=== PATIENT | male | born 1935 | race Caucasian/White ===

== ENCOUNTER → 2017-09-11 | Outpatient (CLI) | payer MEDICARE, OTHER ==
[~2017-09-11] MED LIST: ACULAR0.4 ML OPH; ASPIRIN81 M1 PO; ATENOLOL25 MG PO; CALCIUM 500 + D1 TA1 PO; COSOPT INTRAOC; ELITE MAGNESIUM1 TAB PO; FISH OIL 10001000 MG PO; GARLIC OIL NATUR1 MG PO; LUMIGAN 2.5 ML2.5 ML OPH; MULTIPLE VITAMI1 TAB PO; NIACIN500 M1 PO; OCUFLOX 0.3% 5 M5 ML OPH; PRED FORTE 5 ML5 ML OPH
[2017-09-11 08:48] LABS: CHLORIDE 107 mmol/L (98-107); SODIUM 140 mmol/L (136-145)
[2017-09-11 08:51] LABS: BASO # 0.1 10*3/uL (0.0-0.1); EOS % 10.4 % (1.0-4.0); HEMATOCRIT 43.6 % (42.0-52.0); HEMOGLOBIN 14.2 g/dl (14.0-18.0); LYMPH # 1.5 10*3/uL (1.3-4.4); LYMPH % 15.8 % (27.0-41.0); MEAN CORPUSCULAR HGB 30.9 pg (27.0-31.0); MEAN CORPUSCULAR HGB CONC 32.6 g/dl (33.0-37.0); MEAN PLATELET VOLUME 9.9 fl (9.6-12.3); MONO # 0.7 10*3/uL (0.1-1.0); MONO % 7.4 % (3.0-9.0); NEUT # 6.2 10*3/uL (2.3-7.9); NEUT % 65.2 % (47.0-73.0); PLATELET COUNT AUTOMATED 279 10*3/uL (130-400); RED BLOOD COUNT 4.59 10*6/uL (4.50-5.90); RED CELL DISTRI WIDTH 14.6 % (0-14.5); WHITE BLOOD COUNT 9.6 10*3/uL (4.8-10.8)
[2017-09-11 09:03] LABS: ALKALINE PHOSPHATASE 55 U/L (45-117); BUN 15 mg/dl (7-24); CHOLESTEROL 167 mg/dL (<200); CREATININE 1.24 mg/dL (0.70-1.30); HDL CHOLESTEROL 44 mg/dl (40-60); LDL CHOLESTEROL 104 mg/dL (9-159); SGOT/AST 19 IU/L (3-35); SGPT/ALT 24 U/L (12-78); TOTAL PROTEIN 7.2 gm/dL (6.4-8.2); TRIGLYCERIDES 93 mg/dl (<150); VLDL CHOLESTEROL 19 mg/dL (6-40)
== END | disposition home or self-care (01) ==
LOC: LAB 07:38 → RAD 08:00
PROVIDERS: Internal Medicine
DX: Z12.5 Encounter for screening for malignant neoplasm of prostate (principal); I10 Essential (primary) hypertension; E78.00 Pure hypercholesterolemia, unspecified; N40.1 Benign prostatic hyperplasia with lower urinary tract symptoms; I49.5 Sick sinus syndrome; R13.14 Dysphagia, pharyngoesophageal phase

== ENCOUNTER 2017-10-04 12:54 | Inpatient (IN) | payer MEDICARE, OTHER ==
[~2017-10-04] VITALS: Ht 170.1 cm; Wt 72.7 kg
--- NOTE | ~2017-10-04 | CON ---
[place], [place] REPORT OF CONSULTATION NAME: TARA LAZAR [facility] #: [id number] UNIT #: [id number] ROOM: 507 DOCTOR: DAISY EVANS MD BIRTHDATE: [birth year] DOS: 10/04/2017 REASON FOR CONSULTATION: Dyspnea and edema. HISTORY OF PRESENT ILLNESS: The patient is an 82-year-old man who had rheumatic fever as a child. He was followed by the [facility] until they left the local area. He has a pacemaker in place because of a conduction system disorder. The generator was replaced and one of the leads was replaced in November 2016. 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 He states that he was in his normal state of health until the last several weeks. He has had increased dyspnea, increased pedal edema and increased fatigue lately. He was seen by his primary physician who diagnosed a urinary tract infection. This was treated, but the patient did not get any better. He states that he saw his machine shop inspector, Dr. Cox, at the [facility] a few days ago and was told that his pacemaker was working fine, but his heart had become irregular. The patient believes that he was told he was having periods of atrial fibrillation. Nonetheless, his medications were not changed. He continued to feel breathless and fatigued and therefore came to the emergency room today. He does have evidence for a urinary tract infection. He was found to have a mildly elevated troponin. The patient was admitted for IV antibiotics. When I approached the patient, he stated that he has been more dyspneic and fatigued lately, but he denies palpitations. As noted, his machine shop inspector reportedly told him that he was having atrial fibrillation and they did discuss anticoagulation, but his medications were not changed. In addition to his other symptoms, the patient has noticed pleuritic chest pains for the last several days although these seem to have improved. PAST MEDICAL HISTORY: Includes the followin. Rheumatic heart disease. 2. Conduction system disorder with syncope. The patient was treated with a dual chamber pacemaker in 2013. Reportedly, he developed a lead problem and he underwent a lead replacement along with a generator replacement utilizing a [employer] device 12/05/2016. 3. Essential hypertension. 4. Status post cholecystectomy and appendectomy. 5. Echocardiogram 04/30/2012 demonstrated mild aortic stenosis and moderate mitral stenosis. 6. Echocardiogram November 2015 reportedly showed no changes. 7. Hospitalization 10/04/2017 with urinary tract infection and worsening dyspnea with signs of heart failure. 8. Reported pacemaker interrogation in mid September 2017, at which time the patient was told that he had some irregularities to his heartbeat. This has not yet been confirmed. MEDICATIONS: Prior to admission, Cosopt eye drops 4 drops in the eyes daily, Lumigan eyedrops 2 drops in the eyes daily, aspirin 81 mg per day, atenolol 25 [place], [place] REPORT OF CONSULTATION NAME: TARA LAZAR UNIT #: [id number] ROOM: 507 DOCTOR: DAISY EVANS MD BIRTHDATE: [birth year] mg per day, calcium with vitamin D daily, fish oil daily, garlic daily, magnesium 1 tablet daily, multivitamin daily, potassium 99 mg at bedtime and red yeast rice extract daily. ALLERGIES: The patient lists allergies to PENICILLINS. REVIEW OF SYSTEMS: The patient denies diplopia, loss of vision. Denies lightheadedness or syncope. He denies focal weakness. He states that he did have a mini stroke several years ago, but not recently. He denies orthopnea or PND. He denies fevers or chills. He has felt weak lately. He has noticed increased peripheral edema. He has had some pleuritic chest pains. He denies nausea or vomiting. He denies hemoptysis or hematemesis. He denies change in bowel or bladder habits and denies blood in his stools or urine. He has had some dysuria, however. He denies any skin rashes. He denies polydipsia or polyuria. Remainder of the review of systems is negative except as noted above. SOCIAL HISTORY: The patient is and lives with his . He is nonsmoker and nondrinker. PHYSICAL EXAMINATION: GENERAL: The patient is an elderly white male who does look fatigued. VITAL SIGNS: Pulse is 70 and regular, blood pressure is 132/80. He is afebrile. Pulse ox is 98%. HEENT: Normocephalic and atraumatic. Extraocular muscles are intact. Sclerae are clear. Pupils are equal, round and react to light. The oral mucosa is moist. Tongue is midline. NECK: Supple. He does have jugular distention with hepatojugular reflux when sitting in a 45 degree angle. Carotids are full without bruits. There are no neck or supraclavicular masses. LUNGS: Respirations are unlabored. He has decreased breath sounds at the bases, but no wheezes or rales. He has no presacral edema. CARDIOVASCULAR: His heart has a regular rhythm. He has a soft systolic ejection murmur along the left sternal border. I did not hear any diastolic murmurs. He does not have any gallops. ABDOMEN: Soft and normally active without masses, organomegaly or bruits. EXTREMITIES: Showed 2+ edema to the mid calf. LABORATORY DATA: Electrocardiogram shows a significant baseline artifact. The ventricles are 100% paced; however, I could not determine the atrial mechanism. Troponins are mildly elevated at 0.057 and 0.061, hemoglobin is 13.9, white count 18,900, platelet count 497,000. Sodium is 136, potassium 3.8, BUN 19, creatinine 1.57. Lactic acid is normal at 1.6. IMPRESSIONS: 1. Signs and symptoms of congestive heart failure. The etiology of this is not established; however, the patient is known to have valvular heart disease and reportedly was told by his machine shop inspector that he has developed a heart irregularity. I think it is very likely that he has developed atrial fibrillation based on his symptoms, and absence of an S4 gallop on exam. His [place], [place] REPORT OF CONSULTATION NAME: TARA LAZAR UNIT #: [id number] ROOM: 507 DOCTOR: DAISY EVANS MD BIRTHDATE: [birth year] most recent pacer interrogation would be very helpful in this regard. 2. Probable new onset atrial fibrillation. 3. Pleuritic chest pain, etiology to be determined. 4. Rheumatic heart disease with aortic stenosis and mitral stenosis. 5. Essential hypertension. 6. Urinary tract infection. PLAN: The patient's primary physicians will be taking care of his urinary infection. For now, I think that he should be anticoagulated with heparin. We should make an effort to get the pacer interrogation from his machine shop inspector, Dr. Cox, at the [facility] this coming week. If this is not possible then his pacer should be interrogated by the [employer] player services representative to show us if he has had episodes of atrial fibrillation. I will be getting a lower extremity venous ultrasound. If he does show DVT, then we will switch him from the ACS heparin protocol to the pulmonary emboli protocol. I will diurese the patient gently to try to make him more euvolemic. This coming week, we will do an echocardiogram to reassess valve function. I thank the hospitalist physicians for asking our advice regarding the patient's care. DAISY EVANS MD CM:CONSTR:REPORT OF CONSULTATION 1745 10/04/17 1814 interface
--- NOTE | ~2017-10-04 | PR ---
[place], [place] PROGRESS NOTE NAME: TARA LAZAR UNIT #: [id number] ROOM: 507 DOCTOR: ROSEMARY ROTHMAN MD BIRTHDATE: [birth year] DOS: 10/06/2017 REASON FOR VISIT: Paroxysmal atrial fibrillation, valvular heart disease. SUBJECTIVE: The patient is feeling better. Denies any chest pain, shortness of breath. No fever and chills. No nausea, vomiting, or diarrhea. No PND, no orthopnea, no palpitations. REVIEW OF SYSTEMS: Review of the 10 systems negative except as mentioned above. RHYTHM STRIPS: The patient is in sinus rhythm with ventricular pacing. PHYSICAL EXAMINATION: VITAL SIGNS: Blood pressure 134/77, pulse 70, respiration was 18. GENERAL: The patient is alert, oriented, no acute distress. HEENT: Pupils round, equal. No jaundice. Tongue was moist and pharynx clear. NECK: Supple, no distended neck veins, no carotid bruit. CHEST: Symmetrical, nontender. LUNGS: Few scattered rhonchi, but good air entry bilaterally. HEART: Regular rhythm, no S3, grade 1-2/6 systolic murmur. No palpable thrills. ABDOMEN: Benign, nontender. Bowel sounds normal. EXTREMITIES: Showed no edema. Distal pulses palpable. SKIN: Warm and dry. No cyanosis, no clubbing. RECTAL: Deferred. IMPRESSION: 1. Paroxysmal atrial fibrillation. The patient was on heparin and Coumadin. 2. History of rheumatic heart disease with mild mitral stenosis and mild aortic stenosis, 2D echo is pending to be done Saturday. 3. Status post pacemaker insertion, normal function. 4. Chronic kidney disease. 5. Urinary tract infection. RECOMMENDATIONS: 1. Continue current medication. 2. Continue heparin until his INR 2.0 or greater. 3. 2D echo to be done Saturday. [place], [place] PROGRESS NOTE NAME: TARA LAZAR UNIT #: [id number] ROOM: 507 DOCTOR: ROSEMARY ROTHMAN MD BIRTHDATE: [birth year] ROSEMARY ROTHMAN MD CM:PNTRANS [id number] ROSEMARY ROTHMAN MD 10/07/17 0006 interface
--- NOTE | ~2017-10-04 | PR ---
[place], [place] PROGRESS NOTE NAME: TARA LAZAR UNIT #: [id number] ROOM: 507 DOCTOR: ROSEMARY ROTHMAN MD BIRTHDATE: [birth year] DOS: 10/05/2017 REASON FOR VISIT: Atrial fibrillation and valvular heart disease. SUBJECTIVE: The patient is feeling better. Denies any chest pain or shortness of breath. No palpitation, no dizziness, no nausea, vomiting. REVIEW OF SYSTEMS: Review of the 8 systems negative except as mentioned above. RHYTHM STRIPS: The patient was ventricular pacing. PHYSICAL EXAMINATION: VITAL SIGNS: Blood pressure 138/90, pulse 70, respiration is 20, weight 70.8 kilos. GENERAL: Alert, comfortable, in no acute distress. HEENT: Pupils are equal, no jaundice. NECK: Supple, no distended neck veins, no carotid bruit. CHEST: Symmetrical, nontender. LUNGS: Clear to auscultation bilaterally. HEART: Regular rhythm, grade 2/6 systolic murmur. No S3. ABDOMEN: Benign, nontender. Bowel sounds normal. EXTREMITIES: Showed 1+ edema. Distal pulses are fair. SKIN: Warm and dry. No cyanosis, no clubbing. NEUROLOGIC: The patient is alert, oriented. No focal neurologic deficit. MEDICATIONS AND LABS: Reviewed. IMPRESSION: 1. Paroxysmal atrial fibrillation, new onset, high CHADS2-VASc score. 2. Rheumatic heart disease, mitral stenosis and aortic stenosis. 3. Status post pacemaker. 4. Atypical chest pain. 5. Hypertension. 6. Urinary tract infection. RECOMMENDATIONS: 1. Long discussion with the patient and his , who is at bedside. 2. Risks, benefits of the anticoagulation discussed and he is agreeable to take Coumadin, start 5 mg once daily. 3. Continue heparin until his INR is therapeutic. 4. A 2D echo was ordered. This will be done Saturday. 5. Rest of the management is per Dr. Davila. [place], [place] PROGRESS NOTE NAME: TARA LAZAR UNIT #: [id number] ROOM: 507 DOCTOR: ROSEMARY ROTHMAN MD BIRTHDATE: [birth year] ROSEMARY ROTHMAN MD CM:PNWILLY [phone] ROSEMARY ROTHMAN MD 10/05/179 interface
[~2017-10-04 12:54] MED LIST changes: +COSOPT 2%-0.5%10 ML OPH; -COSOPT INTRAOC; -LUMIGAN 2.5 ML2.5 ML OPH; +LUMIGAN50 DRP OPH
[2017-10-04 13:07] VITALS: BP 154/79
[2017-10-04 13:54] LABS: BASO # 0.1 10*3/uL (0.0-0.1); BASO % 0.4 % (0.0-1.0); EOS # 0.1 10*3/uL (0.0-0.4); EOS % 0.4 % (1.0-4.0); HEMATOCRIT 42.3 % (42.0-52.0); HEMOGLOBIN 13.9 g/dl (14.0-18.0); LYMPH # 1.1 10*3/uL (1.3-4.4); MEAN CELL VOLUME 93.4 fl (80.0-94.0); MEAN CORPUSCULAR HGB 30.7 pg (27.0-31.0); MEAN CORPUSCULAR HGB CONC 32.9 g/dl (33.0-37.0); MEAN PLATELET VOLUME 9.2 fl (9.6-12.3); MONO # 1.2 10*3/uL (0.1-1.0); MONO % 6.1 % (3.0-9.0); NEUT # 16.3 10*3/uL (2.3-7.9); NEUT % 86.5 % (47.0-73.0); PLATELET COUNT AUTOMATED 497 10*3/uL (130-400); RED BLOOD COUNT 4.53 10*6/uL (4.50-5.90); RED CELL DISTRI WIDTH 14.5 % (0-14.5); WHITE BLOOD COUNT 18.9 10*3/uL (4.8-10.8)
[2017-10-04 13:58] LABS: BILIRUBIN NEGATIVE (NEGATIVE); BLOOD 2+ (NEGATIVE); CLARITY CLOUDY (CLEAR); COLOR YELLOW (YELLOW); GLUCOSE NEGATIVE (NEGATIVE); KETONE NEGATIVE (NEGATIVE); LEUKO ESTERASE 3+ (NEGATIVE); NITRITE NEGATIVE (NEGATIVE); SPECIFIC GRAVITY <= 1.005 (1.005-1.030); UROBILINOGEN 0.2 E.U./dl (0.2-1.0)
[2017-10-04 14:02] VITALS: BP 118/59
[2017-10-04 14:06] LABS: BACTERIA 4+; RBC 31-40 rbc/hpf (0-2); WBC TNTC wbc/hpf (0-5)
[2017-10-04] MEDS ORDERED: POTASSIUM99 M5 PO (14:06)
[2017-10-04] MEDS ORDERED: FISH OIL 1,2001 EACH PO (14:06)
[2017-10-04] MEDS ORDERED: RED YEAST RICE30 GM PO (14:07)
[2017-10-04 14:15] LABS: ALBUMIN 3.2 gm/dl (3.1-4.5); CREATININE 1.57 mg/dL (0.70-1.30); POTASSIUM 3.8 mmol/L (3.5-5.1); TOTAL PROTEIN 7.4 gm/dL (6.4-8.2)
[2017-10-04 14:25] LABS: TROPONIN I 0.057 ng/ml (<0.045)
[2017-10-04 15:06] VITALS: BP 153/73
[2017-10-04 16:00] VITALS: BP 132/80
[2017-10-04 17:43] LABS: ACT PARTIAL THROMBO TIME 26.3 SECONDS (20.8-31.5); INTERNATIONAL NORM RATIO 1.2 (2.0-3.5)
[2017-10-04 20:00] VITALS: BP 133/75
[2017-10-05 00:10] VITALS: BP 130/69
[2017-10-05 02:47] LABS: BASO # 0.1 10*3/uL (0.0-0.1); BASO % 0.5 % (0.0-1.0); EOS # 0.1 10*3/uL (0.0-0.4); EOS % 0.4 % (1.0-4.0); HEMATOCRIT 38.5 % (42.0-52.0); HEMOGLOBIN 12.3 g/dl (14.0-18.0); LYMPH # 1.1 10*3/uL (1.3-4.4); LYMPH % 5.8 % (27.0-41.0); MEAN CELL VOLUME 94.1 fl (80.0-94.0); MEAN CORPUSCULAR HGB 30.1 pg (27.0-31.0); MEAN CORPUSCULAR HGB CONC 31.9 g/dl (33.0-37.0); MEAN PLATELET VOLUME 9.2 fl (9.6-12.3); MONO % 5.7 % (3.0-9.0); NEUT # 15.8 10*3/uL (2.3-7.9); PLATELET COUNT AUTOMATED 402 10*3/uL (130-400); RED BLOOD COUNT 4.09 10*6/uL (4.50-5.90); RED CELL DISTRI WIDTH 14.5 % (0-14.5); WHITE BLOOD COUNT 18.1 10*3/uL (4.8-10.8)
[2017-10-05 03:00] LABS: CREATININE 1.42 mg/dL (0.70-1.30); POTASSIUM 4.1 mmol/L (3.5-5.1)
[2017-10-05 03:11] LABS: THYROID STIM HORMONE (HS) 0.553 uIU/ml (0.358-4.75)
[2017-10-05 06:52] LABS: VITAMIN D, 25-HYDROXY 54.9 ng/mL (30-100)
[2017-10-05 08:00] VITALS: BP 143/77
[2017-10-05 12:00] VITALS: BP 138/90
[2017-10-05 16:00] VITALS: BP 135/45
[2017-10-05 20:00] VITALS: BP 133/71
[2017-10-06] VITALS: BP 149/86
[2017-10-06 06:11] LABS: BASO # 0.1 10*3/uL (0.0-0.1); BASO % 0.6 % (0.0-1.0); EOS # 0.2 10*3/uL (0.0-0.4); HEMATOCRIT 41.2 % (42.0-52.0); HEMOGLOBIN 13.1 g/dl (14.0-18.0); LYMPH # 1.3 10*3/uL (1.3-4.4); LYMPH % 8.1 % (27.0-41.0); MEAN CELL VOLUME 95.2 fl (80.0-94.0); MEAN CORPUSCULAR HGB 30.3 pg (27.0-31.0); MEAN CORPUSCULAR HGB CONC 31.8 g/dl (33.0-37.0); MEAN PLATELET VOLUME 9.5 fl (9.6-12.3); MONO # 0.9 10*3/uL (0.1-1.0); MONO % 5.9 % (3.0-9.0); NEUT # 12.9 10*3/uL (2.3-7.9); NEUT % 83.6 % (47.0-73.0); PLATELET COUNT AUTOMATED 439 10*3/uL (130-400); RED BLOOD COUNT 4.33 10*6/uL (4.50-5.90); RED CELL DISTRI WIDTH 14.5 % (0-14.5); WHITE BLOOD COUNT 15.4 10*3/uL (4.8-10.8)
[2017-10-06 06:44] LABS: CREATININE 1.41 mg/dL (0.70-1.30); PHOSPHOROUS 2.8 mg/dL (2.5-4.9); POTASSIUM 4.1 mmol/L (3.5-5.1)
[2017-10-06 08:00] VITALS: BP 109/90
[2017-10-06 12:00] VITALS: BP 134/71
[2017-10-06 16:00] VITALS: BP 141/78
[2017-10-06 20:00] VITALS: BP 126/68
[2017-10-07] VITALS: BP 127/80
[2017-10-07 06:10] LABS: BASO # 0.1 10*3/uL (0.0-0.1); EOS # 0.3 10*3/uL (0.0-0.4); EOS % 2.2 % (1.0-4.0); HEMATOCRIT 41.1 % (42.0-52.0); HEMOGLOBIN 13.1 g/dl (14.0-18.0); LYMPH # 1.9 10*3/uL (1.3-4.4); MEAN CELL VOLUME 95.1 fl (80.0-94.0); MEAN CORPUSCULAR HGB 30.3 pg (27.0-31.0); MEAN CORPUSCULAR HGB CONC 31.9 g/dl (33.0-37.0); MONO # 0.8 10*3/uL (0.1-1.0); MONO % 5.6 % (3.0-9.0); NEUT # 10.4 10*3/uL (2.3-7.9); NEUT % 76.8 % (47.0-73.0); PLATELET COUNT AUTOMATED 460 10*3/uL (130-400); RED BLOOD COUNT 4.32 10*6/uL (4.50-5.90); RED CELL DISTRI WIDTH 14.6 % (0-14.5); WHITE BLOOD COUNT 13.6 10*3/uL (4.8-10.8)
[2017-10-07 06:22] LABS: INTERNATIONAL NORM RATIO 1.2 (2.0-3.5)
[2017-10-07 06:39] LABS: CREATININE 1.49 mg/dL (0.70-1.30); TOTAL PROTEIN 7.1 gm/dL (6.4-8.2)
[2017-10-07 08:00] VITALS: BP 143/90
[2017-10-07 12:00] VITALS: BP 125/68; BP 128/80
[2017-10-07 16:00] VITALS: BP 139/74
[2017-10-07 20:00] VITALS: BP 137/79
[2017-10-08] VITALS: BP 112/59
[2017-10-08 06:52] LABS: BASO # 0.1 10*3/uL (0.0-0.1); BASO % 0.6 % (0.0-1.0); EOS # 0.1 10*3/uL (0.0-0.4); EOS % 1.2 % (1.0-4.0); HEMATOCRIT 39.4 % (42.0-52.0); HEMOGLOBIN 12.6 g/dl (14.0-18.0); LYMPH # 1.1 10*3/uL (1.3-4.4); LYMPH % 9.9 % (27.0-41.0); MEAN CELL VOLUME 94.3 fl (80.0-94.0); MEAN CORPUSCULAR HGB 30.1 pg (27.0-31.0); MEAN PLATELET VOLUME 9.5 fl (9.6-12.3); MONO # 0.6 10*3/uL (0.1-1.0); MONO % 5.5 % (3.0-9.0); NEUT # 9.3 10*3/uL (2.3-7.9); NEUT % 82.4 % (47.0-73.0); PLATELET COUNT AUTOMATED 430 10*3/uL (130-400); RED BLOOD COUNT 4.18 10*6/uL (4.50-5.90); RED CELL DISTRI WIDTH 14.7 % (0-14.5); WHITE BLOOD COUNT 11.3 10*3/uL (4.8-10.8)
[2017-10-08 07:20] LABS: CREATININE 1.52 mg/dL (0.70-1.30)
[2017-10-08 07:38] LABS: INTERNATIONAL NORM RATIO 1.2 (2.0-3.5)
[2017-10-08 07:58] VITALS: BP 151/84
[2017-10-08 12:00] VITALS: BP 121/68
[2017-10-08 16:00] VITALS: BP 136/73
[2017-10-08 20:00] VITALS: BP 117/66
[2017-10-09] VITALS: BP 141/70
[2017-10-09 07:10] LABS: BASO # 0.1 10*3/uL (0.0-0.1); BASO % 0.4 % (0.0-1.0); EOS % 0.2 % (1.0-4.0); HEMATOCRIT 38.1 % (42.0-52.0); HEMOGLOBIN 12.6 g/dl (14.0-18.0); LYMPH # 0.8 10*3/uL (1.3-4.4); LYMPH % 6.8 % (27.0-41.0); MEAN CELL VOLUME 93.8 fl (80.0-94.0); MEAN CORPUSCULAR HGB CONC 33.1 g/dl (33.0-37.0); MEAN PLATELET VOLUME 9.3 fl (9.6-12.3); MONO # 0.7 10*3/uL (0.1-1.0); MONO % 5.2 % (3.0-9.0); NEUT # 10.8 10*3/uL (2.3-7.9); NEUT % 86.8 % (47.0-73.0); PLATELET COUNT AUTOMATED 397 10*3/uL (130-400); RED BLOOD COUNT 4.06 10*6/uL (4.50-5.90); RED CELL DISTRI WIDTH 14.8 % (0-14.5); WHITE BLOOD COUNT 12.4 10*3/uL (4.8-10.8)
[2017-10-09 07:21] LABS: CREATININE 1.59 mg/dL (0.70-1.30); POTASSIUM 3.5 mmol/L (3.5-5.1)
[2017-10-09 07:38] LABS: INTERNATIONAL NORM RATIO 1.3 (2.0-3.5)
[2017-10-09 08:00] VITALS: BP 150/77
[2017-10-09 12:00] VITALS: BP 130/76
[2017-10-09] MEDS ORDERED: COUMADIN5 M2 PO (12:39)
[2017-10-09] MEDS ORDERED: LEVAQUIN750 M1 PO (12:39)
[2017-10-09] MEDS ORDERED: PHENAZOPYRIDIN100 M1 PO (12:39)
[2017-10-09] MEDS ORDERED: OXYGEN NAS (13:27)
== END 2017-10-09 15:22 | disposition home or self-care (01) | DRG 871 ==
LOC: ED 12:54 → 5E 14:58 → EDHOLD 14:58 → ICCU 15:08 → 5E 15:40
PROVIDERS: Emergency Medicine; Family Medicine; Internal Medicine; Internal Medicine Cardiovascular Disease; Student in an Organized Health Care Education/Training Program
DX: A41.9 Sepsis, unspecified organism (principal); N17.0 Acute kidney failure with tubular necrosis; E87.2 Acidosis; E44.0 Moderate protein-calorie malnutrition; D68.59 Other primary thrombophilia; I27.20 Pulmonary hypertension, unspecified; I48.0 Paroxysmal atrial fibrillation; D64.9 Anemia, unspecified; D47.3 Essential (hemorrhagic) thrombocythemia; N39.0 Urinary tract infection, site not specified; I08.0 Rheumatic disorders of both mitral and aortic valves; I12.9 Hypertensive chronic kidney disease with stage 1 through stage 4 chronic kidney disease, or unspecified chronic kidney disease; B95.2 Enterococcus as the cause of diseases classified elsewhere; N18.9 Chronic kidney disease, unspecified; R74.8 Abnormal levels of other serum enzymes; R65.20 Severe sepsis without septic shock; Z95.0 Presence of cardiac pacemaker; Z90.49 Acquired absence of other specified parts of digestive tract; Z82.49 Family history of ischemic heart disease and other diseases of the circulatory system; Z86.69 Personal history of other diseases of the nervous system and sense organs; Z88.0 Allergy status to penicillin; Z79.82 Long term (current) use of aspirin; Z79.899 Other long term (current) drug therapy; Z79.01 Long term (current) use of anticoagulants; Z68.24 Body mass index [BMI] 24.0-24.9, adult

== ENCOUNTER → 2017-10-11 | Outpatient (CLI) | payer MEDICARE, OTHER ==
[~2017-10-11] MED LIST changes: +COUMADIN5 M2 PO; +FISH OIL 1,2001 EACH PO; +LEVAQUIN750 M1 PO; +OXYGEN NAS; +PHENAZOPYRIDIN100 M1 PO; +POTASSIUM99 M5 PO; +RED YEAST RICE30 GM PO
[2017-10-11 09:24] LABS: INTERNATIONAL NORM RATIO 1.5 (2.0-3.5)
== END | disposition home or self-care (01) ==
LOC: LAB 08:39
PROVIDERS: Internal Medicine
DX: Z51.81 Encounter for therapeutic drug level monitoring (principal)

== ENCOUNTER → 2017-10-14 | Outpatient (CLI) | payer MEDICARE, OTHER ==
[2017-10-14 13:05] LABS: INTERNATIONAL NORM RATIO 2.3 (2.0-3.5)
[2017-10-14 18:19] LABS: BASO # 0.1 10*3/uL (0.0-0.1); BASO % 0.7 % (0.0-1.0); EOS # 0.2 10*3/uL (0.0-0.4); EOS % 1.6 % (1.0-4.0); HEMATOCRIT 41.3 % (42.0-52.0); HEMOGLOBIN 13.3 g/dl (14.0-18.0); LYMPH # 1.1 10*3/uL (1.3-4.4); LYMPH % 10.3 % (27.0-41.0); MEAN CELL VOLUME 96.3 fl (80.0-94.0); MEAN CORPUSCULAR HGB CONC 32.2 g/dl (33.0-37.0); MEAN PLATELET VOLUME 10.2 fl (9.6-12.3); MONO # 0.7 10*3/uL (0.1-1.0); NEUT # 8.5 10*3/uL (2.3-7.9); NEUT % 79.9 % (47.0-73.0); PLATELET COUNT AUTOMATED 313 10*3/uL (130-400); RED BLOOD COUNT 4.29 10*6/uL (4.50-5.90); RED CELL DISTRI WIDTH 15.8 % (0-14.5); WHITE BLOOD COUNT 10.6 10*3/uL (4.8-10.8)
[2017-10-14 18:28] LABS: CREATININE 1.61 mg/dL (0.70-1.30); POTASSIUM 4.9 mmol/L (3.5-5.1)
== END | disposition home or self-care (01) ==
LOC: LAB 02:37
PROVIDERS: Internal Medicine
DX: Z51.81 Encounter for therapeutic drug level monitoring (principal); I12.9 Hypertensive chronic kidney disease with stage 1 through stage 4 chronic kidney disease, or unspecified chronic kidney disease; N18.3 Chronic kidney disease, stage 3 (moderate); I49.5 Sick sinus syndrome; E78.00 Pure hypercholesterolemia, unspecified; N39.0 Urinary tract infection, site not specified; R53.83 Other fatigue

== ENCOUNTER → 2017-10-16 | Outpatient (CLI) | payer MEDICARE, OTHER | END | disposition home or self-care (01) | LOC: LAB 03:06 | DX: Z51.81 Encounter for therapeutic drug level monitoring (principal) ==

== ENCOUNTER 2017-11-26 08:32 | Inpatient (IN) | payer MEDICARE, OTHER ==
[~2017-11-26] VITALS: Ht 170 cm; Wt 65.6 kg
[2017-11-26] VITALS (8 sets, daily range): BP systolic 104–154; BP diastolic 69–108
--- NOTE | ~2017-11-26 | PR ---
[place], [place] PROGRESS NOTE NAME: TARA LAZAR UNIT #: [id number] ROOM: 424 DOCTOR: DAISY EVANS MD BIRTHDATE: [birth year] DOS: 11/29/2017 SUBJECTIVE: The patient was seen today at his bedside, 11/29/2017, for followup of his valvular heart disease, conduction system disorder and heart failure with preserved left ventricular systolic function. He presented on this admission with worsening dyspnea. He has been diuresed aggressively and in the last 3 days, his fluid balance has been negative over 4 liters. His weight has gone from 67.2 kilograms down to 64.6. He feels dramatically better and is doing well in rehabilitation. PHYSICAL EXAMINATION: VITAL SIGNS: Today, his pulse is 60 and regular, blood pressure is 105/61. He is afebrile. NECK: Supple. He has no jugular distention. Carotids are full. LUNGS: Respirations are unlabored. His chest is clear. HEART: Has a regular rhythm. He has no gallops. He has a grade 2/6 systolic murmur along the left sternal border and a grade 1/6 holosystolic murmur at the apex as well as a soft diastolic murmur. ABDOMEN: Soft and normally active. EXTREMITIES: Showed trace edema to the knees. LABORATORY DATA: Electrolytes today show a sodium 138, potassium 3.7, BUN of 26 and creatinine of 1.44, these are stable. IMPRESSION: 1. Recurrent congestive heart failure with history of normal left ventricular systolic function and mitral valve stenosis. This appears to be due to the valve disease along with paroxysmal atrial fibrillation. 2. Paroxysmal atrial fibrillation. 3. Rheumatic heart disease with aortic and mitral stenoses. 4. Essential hypertension. 5. Benign prostatic hypertrophy with urinary retention. PLAN: We will switch him from IV to oral diuretics. He should continue anticoagulation with warfarin with a target INR between 2 and 3. If he continues to diurese well with oral diuretics, then he probably could be discharged within the next 24 hours. I thank the hospitalist physicians for asking our advice regarding his care. [place], [place] PROGRESS NOTE NAME: TARA LAZAR UNIT #: [id number] ROOM: 424 DOCTOR: DAISY EVANS MD BIRTHDATE: [birth year] DAISY EVANS MD CM:PNTRANS [id number] DAISY EVANS MD 11/29/172300 interface
--- NOTE | ~2017-11-26 | PR ---
[place], [place] PROGRESS NOTE NAME: TARA LAZAR [facility] #: [id number] UNIT #: [id number] ROOM: 424 DOCTOR: DAISY EVANS MD BIRTHDATE: [birth year] DOS: 11/28/2017 SUBJECTIVE: The patient was seen at his bedside today, 11/28/2017, for followup of his valvular heart disease, conduction system disorder and heart failure with preserved left ventricular systolic function. As noted yesterday, I believe that this is due to rheumatic valvular disease along with diastolic dysfunction and paroxysmal atrial fibrillation. The patient was treated fairly aggressively overnight with intravenous furosemide and has diuresed a fair amount. He still states he feels less well than he did a month ago, although he is better than he was a day ago. He denies chest pain or palpitations. PHYSICAL EXAMINATION: VITAL SIGNS: On exam, his pulse is 76 and regular, blood pressure is 95/51. He weighs 66.4 kg and has a body mass index of 23. He is afebrile. NECK: Supple. He has mild jugular distention with hepatojugular reflux. Carotids are full. LUNGS: Respirations are unlabored. He has decreased breath sounds at the bases. There were no wheezes or rales. He had no presacral edema. HEART: Had a regular rhythm. He had a grade 2/6 systolic ejection murmur along the left sternal border, grade 1/6 holosystolic murmur at the apex. A soft diastolic murmur was also present. ABDOMEN: Benign. EXTREMITIES: Showed 2+ edema to the knees bilaterally. LABORATORY DATA: Electrolytes today show sodium 138, potassium 4.5, chloride 103, CO2 of 28, BUN 26, creatinine 1.49, only slightly higher than on admission. IMPRESSION: 1. Recurrent congestive heart failure with history of normal left ventricular systolic function. The patient has valvular heart disease with mitral stenosis that contributes to his heart failure. He was also recently documented as having paroxysmal atrial fibrillation. 2. Paroxysmal atrial fibrillation. 3. Rheumatic heart disease with aortic and mitral stenosis. 4. Essential hypertension. 5. Benign prostatic hypertrophy with urinary retention. PLAN: I would continue his IV diuretics for the present time. He has improved and we will continue to observe him with IV diuretics until he is close to euvolemia. We will continue to follow him with his other physicians and we thank the hospitalist physicians for asking our advice regarding his care. [place], [place] PROGRESS NOTE NAME: TARA LAZAR UNIT #: [id number] ROOM: [facility] DOCTOR: DAISY EVANS MD BIRTHDATE: [birth year] DAISY EVANS MD CM:PNTRANS [id number] DAISY EVANS MD 11/29/17 0613 interface
--- NOTE | ~2017-11-26 | CON ---
[place], [place] REPORT OF CONSULTATION NAME: TARA LAZAR [facility] #: [id number] UNIT #: [id number] ROOM: 424 DOCTOR: DAISY EVANS MD BIRTHDATE: [birth year] DOS: 11/27/2017 REASON FOR CONSULTATION: Dyspnea and chest discomfort. HISTORY OF PRESENT ILLNESS: The patient is an 82-year-old man who has a history of rheumatic fever as a child. He was followed by the [facility] until they left the local area. A pacemaker has been placed because of a conduction system disorder and is followed by Dr. Cox at the [facility]. This is a [employer] device, which was replaced in 11/2016. I first met him when he presented with worsening dyspnea in 09/2017. I felt that he was having paroxysmal atrial fibrillation. He was diuresed and anticoagulated and improved. He was subsequently admitted to the [facility] for urinary retention and fluid retention. He was diuresed and seen by Urology who placed him on Flomax. He did improve, but there are plans to possibly do a transurethral prostatectomy in the future. From [facility], he went to rehab and was discharged 2 or 3 weeks ago. Over the last few days, he has noticed worsening dyspnea with worsening peripheral edema and increasing oxygen requirements. He therefore returned to the hospital for further management. A chest x-ray in the Emergency Room showed pulmonary vascular congestion with small pleural effusions. ProBNP was elevated at 3817. Troponin levels have been mildly elevated at about 0.06. PAST MEDICAL HISTORY: Includes: 1. Rheumatic heart disease. 2. Conduction system disorder with syncope. The patient received a dual chamber pacemaker in 2013. He developed a lead problem and underwent lead replacement along with generator replacement utilizing a [employer] device, 12/05/2016. 3. Essential hypertension. 4. Status post cholecystectomy and appendectomy. 5. Echocardiogram 04/30/2012 demonstrated mild aortic stenosis and moderate mitral stenosis. 6. Echocardiogram, November 2015, reportedly showed no changes. 7. Hospitalization 10/04/2017 with urinary tract infection and worsening dyspnea along with signs of heart failure. 8. Pacemaker interrogation mid September 2017 reportedly showed paroxysmal atrial fibrillation. 9. Echocardiogram, 10/07/2017, normal left ventricular size with moderate concentric left ventricular hypertrophy, ejection fraction 60%. Indeterminate diastolic function, right ventricle, dilated with decreased systolic function. Left atrium mildly dilated, aortic valve not well visualized with moderate aortic stenosis and mild aortic insufficiency, severe mitral annular calcification with trace mitral insufficiency and moderate mitral stenosis. Mean gradient was 8 mmHg. MEDICATIONS: Prior to admission included DuoNeb by nebulizer as needed, oxygen 2 liters by nasal cannula continuously, Lumigan eye drops p.r.n., Cosopt eyedrops q. 12 hours, atenolol 25 mg daily, furosemide 40 mg p.o. b.i.d., garlic oil 1 mg daily, lactobacillus acidophilus 460 mg daily, losartan 25 mg daily, [place], [place] REPORT OF CONSULTATION NAME: TARA LAZAR UNIT #: [id number] ROOM: 424 DOCTOR: DAISY EVANS MD BIRTHDATE: [birth year] magnesium 1 tablet daily, multivitamin daily, potassium 20 mEq daily, red yeast rice b.i.d., tamsulosin 2 tabs daily, warfarin 5.5 mg daily to maintain an INR between 2 and 3. ALLERGIES: He lists allergies to PENICILLIN. REVIEW OF SYSTEMS: The patient denies diplopia, loss of vision, lightheadedness or syncope. He denies focal weakness. He denies orthopnea or PND. He denies fevers or chills. He has felt weak and worsening dyspnea lately. He has also noticed worsening peripheral edema. He has had pleuritic chest pains, but denies nausea or vomiting. He denies hemoptysis or hematemesis. He has not had any change in bowel or bladder habits and denies blood in his stools or urine. He has no dysuria. He states he has trouble passing his urine. He denies any skin rashes. He denies polydipsia or polyuria. Remainder of the review of systems is negative except as noted above. SOCIAL HISTORY: The patient is and lives with his . He does not consume alcohol or cigarettes. PHYSICAL EXAMINATION: GENERAL: The patient is an elderly white male who is awake, alert and oriented. VITAL SIGNS: Pulse is 79 with occasional premature beats. Blood pressure is 118/72. He is afebrile. He weighs 67.2 kg and has a body mass index 23.3. HEENT: Normocephalic, atraumatic. Extraocular muscles are intact. Sclerae are clear. Pupils are round and react to light. The oral mucosa is moist. Tongue is midline. NECK: Supple. He does have mild hepatojugular reflux when sitting in a 45 degree angle. Carotids are full without bruits. There are no neck or supraclavicular masses. LUNGS: Respirations are unlabored. He has decreased breath sounds at the bases, but no wheezes or rales. He has no presacral edema or chest wall tenderness. CARDIOVASCULAR: His heart has a regular rhythm with frequent premature beats. He has a grade 2/6 systolic ejection murmur along the left sternal border. A grade 1/6 holosystolic murmur at the apex. A soft diastolic murmur was also present. ABDOMEN: Soft and normally active without masses, organomegaly or bruits. EXTREMITIES: Showed 2-3+ edema to the knees. LABORATORY DATA: Electrocardiogram showed sinus rhythm with PACs. He is tracking in the atrium and pacing in the ventricle. The ventricle is 100% paced. Hemoglobin is 12.8, white count 9700, platelet count 264,000. INR is 1.9. Sodium 139, potassium 4.0, chloride 102, CO2 of 27, BUN 25, creatinine 1.36. IMPRESSION: 1. Recurrent congestive heart failure with history of normal left ventricular systolic function. The patient does have valvular heart disease and this probably does contribute to his heart failure. In addition, he was recently documented as having paroxysmal atrial fibrillation, which would contribute to [place], [place] REPORT OF CONSULTATION NAME: TARA LAZAR UNIT #: [id number] ROOM: 424 DOCTOR: DAISY EVANS MD BIRTHDATE: [birth year] this, especially since he is known to have mitral stenosis. 2. Probable paroxysmal atrial fibrillation. 3. Rheumatic heart disease with aortic and mitral stenosis. 4. Essential hypertension. 5. Benign prostatic hypertrophy with urinary retention. PLAN: We will diurese the patient as aggressively as we can given his prostate problems. I will also add nitrates to his regimen as tolerated because of his symptoms of chest discomfort and act as an unloading agent. We will follow him with his other physicians. At this point, no aggressive or invasive cardiac evaluation is planned. We will continue to treat him empirically for his heart failure with preserved ejection fraction and valvular heart disease. He will also continue anticoagulation therapy. We thank the hospitalist physicians for asking our advice regarding his care. DAISY EVANS MD CM:CONSTR:REPORT OF CONSULTATION 1759 11/27/17 2229 interface
[2017-11-26 08:52] LABS: BASO # 0.1 10*3/uL (0.0-0.1); BASO % 0.7 % (0.0-1.0); EOS # 0.4 10*3/uL (0.0-0.4); EOS % 3.8 % (1.0-4.0); HEMATOCRIT 38.9 % (42.0-52.0); HEMOGLOBIN 12.5 g/dl (14.0-18.0); LYMPH # 1.2 10*3/uL (1.3-4.4); LYMPH % 11.5 % (27.0-41.0); MEAN CELL VOLUME 93.3 fl (80.0-94.0); MEAN CORPUSCULAR HGB CONC 32.1 g/dl (33.0-37.0); MEAN PLATELET VOLUME 10.1 fl (9.6-12.3); MONO # 0.7 10*3/uL (0.1-1.0); MONO % 6.8 % (3.0-9.0); NEUT # 8.2 10*3/uL (2.3-7.9); NEUT % 76.8 % (47.0-73.0); PLATELET COUNT AUTOMATED 257 10*3/uL (130-400); RED BLOOD COUNT 4.17 10*6/uL (4.50-5.90); RED CELL DISTRI WIDTH 15.3 % (0-14.5); WHITE BLOOD COUNT 10.7 10*3/uL (4.8-10.8)
[2017-11-26 09:04] LABS: INTERNATIONAL NORM RATIO 2.1 (2.0-3.5)
[2017-11-26 09:10] LABS: ALBUMIN 3.6 gm/dl (3.1-4.5); CREATININE 1.49 mg/dL (0.70-1.30); POTASSIUM 4.5 mmol/L (3.5-5.1); TOTAL PROTEIN 7.2 gm/dL (6.4-8.2)
[2017-11-26 09:11] LABS: TROPONIN I 0.054 ng/ml (<0.045)
[2017-11-26 09:16] LABS: BILIRUBIN NEGATIVE (NEGATIVE); BLOOD TRACE-INTACT (NEGATIVE); CLARITY SL CLOUDY (CLEAR); COLOR YELLOW (YELLOW); GLUCOSE NEGATIVE (NEGATIVE); KETONE NEGATIVE (NEGATIVE); LEUKO ESTERASE NEGATIVE (NEGATIVE); NITRITE NEGATIVE (NEGATIVE); PH 6.5 (5.0-9.0); SPECIFIC GRAVITY 1.015 (1.005-1.030); UROBILINOGEN 0.2 E.U./dl (0.2-1.0)
[2017-11-26 09:25] LABS: EPITHELIAL CELLS 0-2; MUCOUS 1+
[2017-11-26] MEDS ORDERED: COUMADIN5 M2 PO (09:25)
[2017-11-26] MEDS ORDERED: FLOMAX0.4 MG PO (09:26)
[2017-11-26] MEDS ORDERED: POTASSIUM CHLO20 ME3 PO (09:26)
[2017-11-26] MEDS ORDERED: LASIX40 MG PO (09:26)
[2017-11-26] MEDS ORDERED: DUONEB 3 MG/3 ML3 M1 INH (09:27)
[2017-11-26] MEDS ORDERED: FLORAJEN3 CAPS460 MG PO (09:27)
[2017-11-26] MEDS ORDERED: FAMOTIDINE20 M1 PO (09:28)
[2017-11-26] MEDS ORDERED: LOSARTAN POTASS25 M1 PO (09:28)
[2017-11-26] MEDS ORDERED: COUMADIN1 M1 PO (11:06)
[2017-11-27 06:03] LABS: BASO # 0.1 10*3/uL (0.0-0.1); BASO % 0.7 % (0.0-1.0); EOS # 0.5 10*3/uL (0.0-0.4); EOS % 4.9 % (1.0-4.0); HEMATOCRIT 41.1 % (42.0-52.0); HEMOGLOBIN 12.8 g/dl (14.0-18.0); LYMPH # 1.4 10*3/uL (1.3-4.4); LYMPH % 14.1 % (27.0-41.0); MEAN CELL VOLUME 94.3 fl (80.0-94.0); MEAN CORPUSCULAR HGB 29.4 pg (27.0-31.0); MEAN CORPUSCULAR HGB CONC 31.1 g/dl (33.0-37.0); MEAN PLATELET VOLUME 10.6 fl (9.6-12.3); MONO # 0.8 10*3/uL (0.1-1.0); MONO % 8.1 % (3.0-9.0); NEUT % 71.9 % (47.0-73.0); PLATELET COUNT AUTOMATED 264 10*3/uL (130-400); RED BLOOD COUNT 4.36 10*6/uL (4.50-5.90); RED CELL DISTRI WIDTH 15.3 % (0-14.5); WHITE BLOOD COUNT 9.7 10*3/uL (4.8-10.8)
[2017-11-27 06:37] LABS: ALBUMIN 3.6 gm/dl (3.1-4.5); ALKALINE PHOSPHATASE 74 U/L (45-117); BUN 25 mg/dl (7-24); CHLORIDE 102 mmol/L (98-107); CHOLESTEROL 135 mg/dL (<200); CREATININE 1.36 mg/dL (0.70-1.30); HDL CHOLESTEROL 43 mg/dl (40-60); LDL CHOLESTEROL 73 mg/dL (9-159); PHOSPHOROUS 3.6 mg/dL (2.5-4.9); SGOT/AST 22 IU/L (3-35); SGPT/ALT 28 U/L (12-78); SODIUM 139 mmol/L (136-145); TOTAL PROTEIN 7.3 gm/dL (6.4-8.2); TRIGLYCERIDES 93 mg/dl (<150); VLDL CHOLESTEROL 19 mg/dL (6-40)
[2017-11-27 06:44] LABS: ACT PARTIAL THROMBO TIME 36.2 SECONDS (20.8-31.5); INTERNATIONAL NORM RATIO 1.9 (2.0-3.5)
[2017-11-27 07:21] LABS: VITAMIN D, 25-HYDROXY 32.5 ng/mL (30-100)
[2017-11-27 08:00] VITALS: BP 113/89
[2017-11-27 12:00] VITALS: BP 119/88
[2017-11-27 16:00] VITALS: BP 118/72
[2017-11-27 20:00] VITALS: BP 108/57
[2017-11-28] VITALS: BP 110/60
[2017-11-28 08:00] VITALS: BP 109/65
[2017-11-28 08:04] LABS: BASO # 0.1 10*3/uL (0.0-0.1); BASO % 0.7 % (0.0-1.0); EOS # 0.7 10*3/uL (0.0-0.4); EOS % 7.4 % (1.0-4.0); HEMATOCRIT 38.9 % (42.0-52.0); HEMOGLOBIN 12.3 g/dl (14.0-18.0); LYMPH # 1.4 10*3/uL (1.3-4.4); LYMPH % 15.4 % (27.0-41.0); MEAN CORPUSCULAR HGB 29.7 pg (27.0-31.0); MEAN CORPUSCULAR HGB CONC 31.6 g/dl (33.0-37.0); MEAN PLATELET VOLUME 9.6 fl (9.6-12.3); MONO # 0.7 10*3/uL (0.1-1.0); MONO % 8.4 % (3.0-9.0); NEUT % 67.8 % (47.0-73.0); PLATELET COUNT AUTOMATED 245 10*3/uL (130-400); RED BLOOD COUNT 4.14 10*6/uL (4.50-5.90); WHITE BLOOD COUNT 8.8 10*3/uL (4.8-10.8)
[2017-11-28 08:21] LABS: CREATININE 1.49 mg/dL (0.70-1.30); PHOSPHOROUS 3.8 mg/dL (2.5-4.9); POTASSIUM 4.5 mmol/L (3.5-5.1)
[2017-11-28 12:00] VITALS: BP 122/86
[2017-11-28 16:00] VITALS: BP 95/51
[2017-11-28 20:00] VITALS: BP 102/63
[2017-11-29] VITALS: BP 105/52
[2017-11-29 07:32] LABS: INTERNATIONAL NORM RATIO 1.9 (2.0-3.5)
[2017-11-29 07:49] LABS: CREATININE 1.44 mg/dL (0.70-1.30); POTASSIUM 3.7 mmol/L (3.5-5.1)
[2017-11-29 08:00] VITALS: BP 105/61
[2017-11-29 12:00] VITALS: BP 104/64
[2017-11-29 16:00] VITALS: BP 106/62
[2017-11-30] VITALS: BP 90/50; BP 96/52
[2017-11-30 06:51] LABS: CREATININE 1.73 mg/dL (0.70-1.30); POTASSIUM 3.6 mmol/L (3.5-5.1)
[2017-11-30 08:00] VITALS: BP 92/44
[2017-11-30 12:00] VITALS: BP 96/52
[2017-11-30 16:00] VITALS: BP 113/63
[2017-11-30 20:00] VITALS: BP 108/68
[2017-12-01] VITALS: BP 107/59
[2017-12-01 06:34] LABS: INTERNATIONAL NORM RATIO 1.7 (2.0-3.5)
[2017-12-01 06:35] LABS: CREATININE 1.38 mg/dL (0.70-1.30); POTASSIUM 4.1 mmol/L (3.5-5.1)
[2017-12-01 08:00] VITALS: BP 112/55
[2017-12-01] MEDS ORDERED: TORSEMIDE20 MG PO (11:06)
[2017-12-01] MEDS ORDERED: LOSARTAN POTASS25 M1 PO (11:06)
== END 2017-12-01 12:26 | disposition home health service (06) | DRG 291 ==
LOC: ED 08:32 → 4E 09:46 → EDHOLD 09:46 → 4E 09:58
PROVIDERS: Emergency Medicine; Internal Medicine; Internal Medicine Cardiovascular Disease
DX: I13.0 Hypertensive heart and chronic kidney disease with heart failure and stage 1 through stage 4 chronic kidney disease, or unspecified chronic kidney disease (principal); I50.33 Acute on chronic diastolic (congestive) heart failure; J96.00 Acute respiratory failure, unspecified whether with hypoxia or hypercapnia; R65.11 Systemic inflammatory response syndrome (SIRS) of non-infectious origin with acute organ dysfunction; D68.59 Other primary thrombophilia; I27.20 Pulmonary hypertension, unspecified; E83.41 Hypermagnesemia; N18.3 Chronic kidney disease, stage 3 (moderate); I48.0 Paroxysmal atrial fibrillation; I95.0 Idiopathic hypotension; R33.9 Retention of urine, unspecified; H35.30 Unspecified macular degeneration; H40.9 Unspecified glaucoma; N40.1 Benign prostatic hyperplasia with lower urinary tract symptoms; M94.0 Chondrocostal junction syndrome [Tietze]; D64.9 Anemia, unspecified; I08.0 Rheumatic disorders of both mitral and aortic valves; R73.03 Prediabetes; Z90.49 Acquired absence of other specified parts of digestive tract; Z95.0 Presence of cardiac pacemaker; Z79.01 Long term (current) use of anticoagulants; Z79.899 Other long term (current) drug therapy; Z82.49 Family history of ischemic heart disease and other diseases of the circulatory system; Z81.8 Family history of other mental and behavioral disorders